=== PATIENT | male | born 1965 | race Hispanic/Latino ===

== ENCOUNTER 2017-12-25 20:08 | Emergency (ER) | payer BC, OTHER ==
[~2017-12-25] VITALS: Ht 177.8 cm; Wt 111.1 kg
[2017-12-25 21:43] VITALS: BP 167/95
== END 2017-12-25 21:45 | disposition home or self-care (01) ==
LOC: ER 20:08
DX: H92.02 Otalgia, left ear (principal)
CPT/HCPCS: 99283